=== PATIENT | female | born 1960 | race Caucasian/White ===

== ENCOUNTER 2017-01-23 00:41 | Emergency (ER) | payer BC ==
[2017-01-23 06:01] LABS: ABSOLUTE BASOPHILS # (AUTO) 0.1 10^3/uL (0.0-0.2); ABSOLUTE EOSINOPHILS # (AUTO) 0.1 10^3/uL (0.0-0.6); ABSOLUTE LYMPHOCYTES (AUTO) 1.7 10^3/uL (0.5-4.7); ABSOLUTE MONOCYTES (AUTO) 0.6 10^3/uL (0.1-1.4); ABSOLUTE NEUT (AUTO) 2.8 10^3/uL (1.7-8.2); BASOPHILS % (AUTO) 1.1 % (0-2); EOSINOPHILS % (AUTO) 2.4 % (0-6); HEMATOCRIT 37.1 % (36.0-47.0); HEMOGLOBIN 13.1 g/dL (12.0-15.5); HGB HCT DIFFERENCE 2.2; LYMPHOCYTES % (AUTO) 32.3 % (13-45); MEAN CORPUSCULAR HEMOGLOBIN 32.5 pg (27.0-33.4); MEAN CORPUSCULAR HGB CONC 35.3 g/dL (32.0-36.0); MEAN CORPUSCULAR VOLUME 92 fl (80-97); MONOCYTES % (AUTO) 11.3 % (3-13); RED BLOOD COUNT 4.04 10^6/uL (3.72-5.28); RED CELL DISTRIBUTION WIDTH 12.1 % (11.5-14.0); SEGMENTED NEUTROPHILS % (AUTO) 52.9 % (42-78); WHITE BLOOD COUNT 5.2 10^3/uL (4.0-10.5)
--- NOTE | 2017-01-23 06:08 | ER Document Report ---
ED General - General Mode of Arrival: Ambulatory TRAVEL OUTSIDE OF THE [place] IN LAST 30 DAYS: No - HPI Patient complains to provider of: left lower quadrant abdominal pain Onset: Yesterday Onset/Duration: Sudden Associated symptoms: Diarrhea, Other - Left lower back pain. denies: Nausea, Vomiting <JAYNE PEDRO - Last Filed: 01/23/17 11:36> <NUNOALBERTO - Last Filed: 01/23/17 21:17> - General Chief Complaint: Flank Pain Stated Complaint: FLANK PAIN/SWELLING Notes: Patient is a 56-year-old female presenting to the emergency department concerned of left lower quadrant abdominal pain with swelling. Patient also complains of lower back pain on the left side and diarrhea. Patient denies any nausea or vomiting. Patient has past medical history of UTI. Patient sees Dr. Gonzalez for her primary care at [place]. She was last seen in August 2016. (JAYNE PEDRO) - Related Data Allergies/Adverse Reactions: iodine [Iodine] Allergy (Verified 12/24/14 16:42) Past Medical History - General Information source: Patient, [facility] Records - Social History Smoking Status: Former Smoker Chew tobacco use (# tins/day): No Frequency of alcohol use: Occasional Drug Abuse: None Family History: Reviewed & Not Pertinent Patient has suicidal ideation: No Patient has homicidal ideation: No - Past Medical History Cardiac Medical History: Reports: Hx Heart Attack - x2, Hx Hypertension Renal/ Medical History: Denies: Hx Peritoneal Dialysis Psychiatric Medical History: Reports: Hx Depression <JAYNE PEDRO - Last Filed: 01/23/17 11:36> Review of Systems - Review of Systems Constitutional: No symptoms reported EENT: No symptoms reported Cardiovascular: No symptoms reported Respiratory: No symptoms reported Gastrointestinal: See HPI, Abdominal pain - Left lower quadrant abdominal pain with swelling, Diarrhea. denies: Nausea, Vomiting Genitourinary: See HPI, Flank pain - Left Female Genitourinary: No symptoms reported Musculoskeletal: No symptoms reported Skin: No symptoms reported Hematologic/Lymphatic: No symptoms reported Neurological/Psychological: No symptoms reported -: Yes All other systems reviewed and negative <JAYNE PEDRO - Last Filed: 01/23/17 11:36> Physical Exam - General General appearance: Appears well, Alert - HEENT Head: Normocephalic, Atraumatic Eyes: Normal Pupils: PERRL - Respiratory Respiratory status: No respiratory distress Chest status: Nontender Breath sounds: Normal Chest palpation: Normal - Cardiovascular Rhythm: Regular Heart sounds: Normal auscultation Murmur: No - Abdominal Bowel sounds: Normal Tenderness: Tender - Left lower quadrant tenderness to palpation, Other - No rigidity. No: Guarding, Rebound - Back Back: Normal, Nontender - Extremities General upper extremity: Normal inspection, Nontender General lower extremity: Normal inspection, Nontender - Neurological Neuro grossly intact: Yes Cognition: Normal Orientation: AAOx4 Mohinder Coma Scale Eye Opening: Spontaneous Mohinder Coma Scale Verbal: Oriented Mohinder Coma Scale Motor: Obeys Commands Mohinder Coma Scale Total: 15 Speech: Normal - Psychological Associated symptoms: Normal affect, Normal mood - Skin Skin Temperature: Warm Skin Moisture: Dry Skin Color: Normal <JAYNE PEDRO - Last Filed: 01/23/17 11:36> Course - Laboratory Result Diagrams: 01/23/17 05:50 01/23/17 05:50 <JAYNE PEDRO - Last Filed: 01/23/17 11:36> - Laboratory Result Diagrams: 01/23/17 05:50 01/23/17 05:50 <ALBERTO REINA - Last Filed: 01/23/17 21:17> - Re-evaluation Re-evalutation: 01/23/17 07:42 I personally performed the services described in the documentation, reviewed and edited the documentation which was dictated to my scribe in my presence, and it accurately records my words and actions. presents emergency from and she thinks her left side is little bit swollen. She denies any history of trauma diarrhea but no nausea or vomiting no abdominal pain flank pain urinary symptoms fevers chills or change in appetite. Well- appearing nontoxic on examination acute abdominal guarding rebound rigidity. Laboratory evaluation is normal CT scan is normal positive for urinary tract infection getting ahead and start her on antibiotics. She is to follow up with her primary care physician call that today to be seen in evaluation in 2 days and discussed reasons for ED return sooner (ALBERTO REINA) - Vital Signs Vital signs: Temp Pulse Resp BP Pulse Ox 97.7 F 71 18 140/82 H 97 01/23/17 00:45 01/23/17 07:50 01/23/17 00:45 01/23/17 07:50 01/23/17 07:50 - Laboratory Laboratory results interpreted by me: 01/23/17 01/23/17 05:50 06:45 Chloride 109 H Urine Blood SMALL H Ur Leukocyte Esterase LARGE H Discharge <JAYNE PEDRO - Last Filed: 01/23/17 11:36> <ALBERTO REINA - Last Filed: 01/23/17 21:17> - Discharge Clinical Impression: UTI (urinary tract infection) Qualifiers: Urinary tract infection type: acute cystitis Hematuria presence: without hematuria Qualified Code(s): N30.00 - Acute cystitis without hematuria Condition: Stable Disposition: HOME, SELF-CARE Instructions: Nitrofurantoin ([facility]) Additional Instructions: Urinary Tract Infection Your evaluation indicates that you have a urinary tract infection. This is due to germs growing in the bladder. This is a common problem. This infection usually responds quickly to antibiotics. Your antibiotic should be taken exactly as prescribed. Drink plenty of fluids -- three to four quarts a day. Occasionally, a bladder anesthetic will be prescribed to help stop the feeling of urgency until the antibiotic has a chance to clear the infection. This may cause your urine to be dark orange. Certain urine infections require a culture. If the doctor obtained a culture, the results will be back in two days. You should call to see if a change in treatment is needed. A repeat urinalysis after you finish treatment is often recommended. The physician will let you know if further testing is required. Call the doctor if you develop fever, chills, flank pain, inability to urinate, or blood in the urine. Call your primary care physician for follow-up in 1-2 days return for increasing worsening or new symptoms Prescriptions: Nitrofurantoin/Nitrofuran Mac [Macrobid 100 mg Capsule] 1 tab PO BID #20 capsule Referrals: BINDU VÁZQUEZ MD [Primary Care Provider] - Follow up as needed Scribe Documentation - Scribe Written by Roro:: Jayne Pedro 01/23/2017 0608 acting as scribe for :: Nuno <JAYNE PEDRO - Last Filed: 01/23/17 11:36>
[2017-01-23 06:15] LABS: ANION GAP 12 (5-19); BLOOD UREA NITROGEN 18 mg/dL (7-20); CALCIUM 9.6 mg/dL (8.4-10.2); CARBON DIOXIDE 24 mmol/L (22-30); CHLORIDE 109 mmol/L (98-107); GLUCOSE 102 mg/dL (75-110); POTASSIUM 4.3 mmol/L (3.6-5.0); SODIUM 144.7 mmol/L (137-145)
[2017-01-23 07:08] LABS: APPEARANCE,URINE SLIGHTLY-CLOUDY; BILIRUBIN,URINE NEGATIVE (NEGATIVE); GLUCOSE, URINE NEGATIVE (NEGATIVE); KETONES,URINE NEGATIVE (NEGATIVE); LEUKOCYTE ESTERASE,URINE LARGE (NEGATIVE); NITRITE,URINE NEGATIVE (NEGATIVE); PROTEIN,URINE NEGATIVE (NEGATIVE); URINE SPECIFIC GRAVITY 1.013; UROBILINOGEN,URINE NEGATIVE mg/dL (<2.0)
[2017-01-23 08:34] VITALS: BP 140/82
== END 2017-01-23 07:50 | disposition home or self-care (01) ==
LOC: ER 00:41
DX: N30.00 Acute cystitis without hematuria (principal); R10.9 Unspecified abdominal pain; R10.32 Left lower quadrant pain; M54.5 Low back pain; R19.7 Diarrhea, unspecified; Z87.891 Personal history of nicotine dependence
CPT/HCPCS: 36415; 76380; 80048; 81001; 85025; 99284

== ENCOUNTER → 2017-02-20 | Outpatient (CLI) | payer BC | LOC: RAD 14:48 | PROVIDERS: ATTEND Family Medicine | DX: M54.2 Cervicalgia (principal); M79.644 Pain in right finger(s) | CPT/HCPCS: 72050 ==

== ENCOUNTER 2019-06-13 08:24 | Day surgery (SDC) | payer MEDICAID ==
[~2019-06-13 08:24] MED LIST: PROPOFOL INJ 200 MG/20 ML VIAL IV ONE
[2019-06-13 10:58] VITALS: BP 119/75
--- NOTE | 2019-06-13 11:46 | Operative Report ---
Operative Report DATE OF SURGERY: 06/13/19 Operative Report: The risks, benefits and alternatives of the procedure including the risk of bleeding, perforation requiring surgery have been explained to the patient in detail and informed consent has been obtained. The patient is placed in the left, lateral decubital position. Timeout was called. Propofol medication is administered. Rectal examination is done which did not reveal any masses, tears or fissures. An Olympus videoscope was introduced into the patient's rectum. The scope was then carefully advanced all the way to the cecum. The cecum was identified by the usual anatomical landmarks including the ileocecal valve as well as the appendiceal office. Photodocumentation is obtained. Scope was then sequentially pulled back via the various segments of the colon including the ascending colon, hepatic flexure, transverse colon, splenic flexure, descending colon and finally into the rectosigmoid portions of the colon. Retroflexion maneuvers performed. PREOPERATIVE DIAGNOSIS: Chronic diarrhea, change in bowel habits POSTOPERATIVE DIAGNOSIS: Single biopsy specimen obtained right side of the colon rule out lymphocytic, collagenous colitis. Internal hemorrhoids OPERATION: Colonoscopy with biopsy SURGEON: LEONIDES SKINNER ANESTHESIA: LMAC TISSUE REMOVED OR ALTERED: As noted above. COMPLICATIONS: None. ESTIMATED BLOOD LOSS: None. INTRAOPERATIVE FINDINGS: As noted above. PROCEDURE: Patient tolerated the procedure well. No immediate postprocedure complications are noted. Patient is discharged in good condition. Discharge date 06/13/2019. Discharge diet: Regular. Discharge activity: Regular. 2 to 3-week follow-up to discuss findings. Patient is instructed to call the office or proceed to the emergency room should there be any further problems or questions. Wait on the pathology
== END 2019-06-13 11:00 | disposition home or self-care (01) ==
LOC: END 08:24
PROVIDERS: ATTEND Internal Medicine Gastroenterology
DX: K52.9 Noninfective gastroenteritis and colitis, unspecified (principal); K64.8 Other hemorrhoids; K62.5 Hemorrhage of anus and rectum; Z80.0 Family history of malignant neoplasm of digestive organs; I10 Essential (primary) hypertension; E78.5 Hyperlipidemia, unspecified; I25.10 Atherosclerotic heart disease of native coronary artery without angina pectoris; I25.2 Old myocardial infarction; Z79.82 Long term (current) use of aspirin; Z79.899 Other long term (current) drug therapy
CPT/HCPCS: 45380; 88305 ×2; J2704; 811

== ENCOUNTER → 2020-02-12 | Outpatient (CLI) | payer MEDICAID ==
[2020-02-13 12:36] LABS: ANTICHROMATIN AB <0.2 AI (0.0-0.9); CENTROMERE B AB <0.2 AI (0.0-0.9); JO-1 ANTIBODY (ANACOMP) <0.2 AI (0.0-0.9)
== END ==
LOC: OD 11:50
PROVIDERS: ATTEND Registered Nurse
DX: R94.2 Abnormal results of pulmonary function studies (principal)
CPT/HCPCS: 36415; 86021; 86225; 86235; 86431

== ENCOUNTER 2020-02-14 23:46 | Observation (INO) | payer MEDICAID ==
[2020-02-15] MEDS ORDERED: NITROGLYCERIN 0.4 MG/TAB 25 TAB/BOTTLE SL PRN ×2 (00:22→03:51)
[2020-02-15 00:25] LABS: ABSOLUTE BASOPHILS # (AUTO) 0.1 10^3/uL (0.0-0.2); ABSOLUTE EOSINOPHILS # (AUTO) 0.3 10^3/uL (0.0-0.6); ABSOLUTE LYMPHOCYTES (AUTO) 2.1 10^3/uL (0.5-4.7); ABSOLUTE MONOCYTES (AUTO) 0.7 10^3/uL (0.1-1.4); ABSOLUTE NEUT (AUTO) 2.6 10^3/uL (1.7-8.2); BASOPHILS % (AUTO) 1.3 % (0-2); HEMATOCRIT 38.6 % (36.0-47.0); HEMOGLOBIN 13.9 g/dL (12.0-15.5); LYMPHOCYTES % (AUTO) 36.5 % (13-45); MEAN CORPUSCULAR HEMOGLOBIN 32.9 pg (27.0-33.4); MEAN CORPUSCULAR HGB CONC 36.1 g/dL (32.0-36.0); MEAN CORPUSCULAR VOLUME 91 fl (80-97); MONOCYTES % (AUTO) 11.6 % (3-13); PLATELET COUNT 222 10^3/uL (150-450); RED BLOOD COUNT 4.24 10^6/uL (3.72-5.28); RED CELL DISTRIBUTION WIDTH 12.4 % (11.5-14.0); SEGMENTED NEUTROPHILS % (AUTO) 44.6 % (42-78); TOTAL CELLS COUNTED % (AUTO) 100 %; WHITE BLOOD COUNT 5.8 10^3/uL (4.0-10.5)
[2020-02-15 00:31] LABS: ALBUMIN 3.9 g/dL (3.5-5.0); ALKALINE PHOSPHATASE 141 U/L (38-126); ANION GAP 10 (5-19); ASPARTATE AMINO TRANSFERASE 43 U/L (14-36); BILIRUBIN,TOTAL 0.9 mg/dL (0.2-1.3); BLOOD UREA NITROGEN 12 mg/dL (7-20); CALCIUM 9.5 mg/dL (8.4-10.2); CARBON DIOXIDE 23 mmol/L (22-30); CHLORIDE 104 mmol/L (98-107); CREATINE KINASE 131 U/L (30-135); GLUCOSE 102 mg/dL (75-110); POTASSIUM 4.3 mmol/L (3.6-5.0); TOTAL PROTEIN 6.8 g/dL (6.3-8.2)
[2020-02-15 00:45] LABS: CREATINE KINASE MB 1.09 ng/mL (<4.55)
[2020-02-15 00:49] LABS: TROPONIN I < 0.012 ng/mL
--- NOTE | 2020-02-15 01:14 | RADIOLOGY REPORT (SQ) ---
CLINICAL INDICATION: PAIN. TECHNIQUE: A single portable AP view was obtained of the chest at 0031 hours. COMPARISON: December 24, 2014. PA and lateral FINDINGS: The cardiomediastinal silhouette appears prominent and mildly larger than prior evening accounting for technical differences. The lungs are grossly clear. No evidence of effusion or pneumothorax. The visualized bones are unremarkable. Chronic parenchymal lung change. IMPRESSION: No evidence of active intrathoracic disease. Chronic parenchymal lung change. The cardiac silhouette is larger than it was previously
--- NOTE | 2020-02-15 01:42 | ER Document Report ---
Entered by SALVATORE BURGOS SCRIBE 02/15/20 0027 Acting as scribe for:RANDALL CARRION IV, MD ED Cardiac - General Chief Complaint: Chest Pain Stated Complaint: CHEST PAIN Time Seen by Provider: 02/15/20 00:01 Mode of Arrival: Medic Information source: Patient Notes: This 59 year old female patient with a history of HTN, CAD, and AL x2 with stent placement on 11/2018 in [place] who was brought in by EMS presents to the ED today with complaints of left-sided chest pain with radiation to her back that started around 2200 last night. Patient states that she was laying down in bed when she felt a sudden pressure to the left side of her chest. She states that the pain feels similar to her previous MIs. She reports that she took x1 NTG prior to EMS arrival that provided some relief and received aspirin and an additional spray of SL NTG from EMS en route to the ED. She states the chest pressure is still present at this time. Denies shortness of breath. Patient is a former smoker, quit x5 years ago. Dr. Allen is her tests superintendent. TRAVEL OUTSIDE OF THE U[place] IN LAST 30 DAYS: No - Related Data Allergies/Adverse Reactions: iodine [Iodine] Allergy (Verified 06/13/19 08:21) Past Medical History - General Information source: Patient, [facility] Records - Social History Smoking Status: Former Smoker - quit x5 years ago Cigarette use (# per day): No Chew tobacco use (# tins/day): No Smoking Education Provided: No Frequency of alcohol use: Occasional Drug Abuse: None Family History: Reviewed & Not Pertinent Patient has suicidal ideation: No Patient has homicidal ideation: No - Past Medical History Cardiac Medical History: Reports: Hx Coronary Artery Disease, Hx Heart Attack - x2. STENT PLACED, Hx Hypertension Psychiatric Medical History: Reports: Hx Depression Past Surgical History: Reports: Hx Coronary Stent - 11/2018 [facility] - Immunizations Hx Diphtheria, Pertussis, Tetanus Vaccination: No Review of Systems - Review of Systems Constitutional: No symptoms reported EENT: No symptoms reported Cardiovascular: See HPI, Chest pain Respiratory: See HPI. denies: Short of breath Gastrointestinal: No symptoms reported Genitourinary: No symptoms reported Female Genitourinary: No symptoms reported Musculoskeletal: See HPI, Back pain Skin: No symptoms reported Hematologic/Lymphatic: No symptoms reported Neurological/Psychological: No symptoms reported -: Yes All other systems reviewed and negative Physical Exam - Vital signs Vitals: Temp 98.3 F 02/14/20 23:53 - General General appearance: Alert In distress: None - HEENT Head: Normocephalic, Atraumatic Eyes: Normal Pupils: PERRL - Respiratory Respiratory status: No respiratory distress Chest status: Nontender Breath sounds: Normal Chest palpation: Normal - Cardiovascular Rhythm: Regular Heart sounds: Normal auscultation Murmur: No Friction rub: No Gallop: None auscultated - Abdominal Inspection: Normal Distension: No distension Bowel sounds: Normal Tenderness: Nontender - Abdomen soft Organomegaly: No organomegaly - Back Back: Normal, Nontender - Extremities General upper extremity: Normal inspection General lower extremity: Normal inspection - Neurological Neuro grossly intact: Yes Orientation: AAOx4 - Psychological Associated symptoms: Normal affect, Normal mood - Skin Skin Temperature: Warm Skin Moisture: Dry Skin Color: Normal Course - Re-evaluation Re-evalutation: 02/15/20 03:51 Patient is chest pain-free after administration of sublingual nitroglycerin in the emergency department. Patient agrees to be admitted for observation. Results of ED MSE discussed with patient. All questions were answered. 02/15/20 04:39 This MD was notified by patient's nurse that the second troponin on the patient was above the AMI cutoff. This MD spoke with patient's tests superintendent Dr. Allen. He agreed that the patient needed to be transferred to a center for higher level of care given that her second troponin is positive. 02/15/20 04:43 - Vital Signs Vital signs: Temp Pulse Resp BP Pulse Ox 98.3 F 65 126/78 H 02/14/20 23:53 02/15/20 02:15 02/15/20 02:15 - Laboratory Result Diagrams: 02/14/20 23:20 02/14/20 23:20 Laboratory results interpreted by me: 02/14/20 02/14/20 23:20 23:20 MCHC 36.1 H AST 43 H ALT 36 H Alkaline Phosphatase 141 H - Diagnostic Test Radiology reviewed: Reports reviewed - EKG Interpretation by Me Additional EKG results interpreted by me: 02/15/20 03:53 EKG obtained on 02/15/2020 at 00 13 hours was interpreted by this MD. Findings: Rate 64, normal sinus rhythm, P waves proceed QRS complexes, QRS complexes are narrow, there are no obvious patterns of ST segment elevation or depression present to suggest acute myocardial ischemia or infarction. Impression: Normal sinus rhythm with nonspecific ST segments. - Consults dr. vishal lundberg Time consulted: 03:55 - agreed to admit pt for observation Reason for consultation: 02/15/20 04:00 chest pain Consulted provider: will see as inpatient Dr. Barrington Francisco Time consulted: 04:43 - Dr. Francisco accepted patient for transfer to his facility Reason for consultation: 02/15/20 04:44 NSTEMI Discharge - Discharge Clinical Impression: NSTEMI (non-ST elevated myocardial infarction) Condition: Good Disposition: [facility] I personally performed the services described in the documentation, reviewed and edited the documentation which was dictated to the scribe in my presence, and it accurately records my words and actions.
[2020-02-15] MEDS ORDERED: NITROGLYCERIN 2% OINTMENT 1 GM PACKET TP ONE (03:43)
[2020-02-15] MEDS ORDERED: ACETAMINOPHEN 325 MG TABLET PO PRN (03:51)
[2020-02-15] MEDS ORDERED: ENOXAPARIN SODIUM INJ 80 MG/0.8 ML DISP.SYRIN SUBCUT ONE ×2 (04:00→04:34)
[2020-02-15 06:22] VITALS: BP 115/68
--- NOTE | 2020-02-15 06:54 | ER Document Report ---
Doctor's Note Notes: 02/15/20 06:52 Nurse notified this MD that transport has arrived to take patient to [facility] in [place]. This MD saw the patient prior to discharge. She is alert and oriented x3, appears to be in no acute distress, denies chest pain, has no questions at time of transfer. Patient appears safe and stable for transfer to [facility].
--- NOTE | 2020-02-15 11:07 | EKG REPORT ---
SEVERITY:- BORDERLINE ECG - SINUS RHYTHM BORDERLINE T ABNORMALITIES, ANT-LAT LEADS : Confirmed by: Reddy Lew 15-Feb-2020 11:06:45
[2020-02-15] MEDS ORDERED: ENOXAPARIN SODIUM INJ 80 MG/0.8 ML DISP.SYRIN SUBCUT SCH (18:00)
== END 2020-02-15 06:54 | disposition short-term general hospital (02) ==
LOC: ER 23:46 → EH 02-15 03:57
PROVIDERS: ADMIT Internal Medicine; ATTEND Internal Medicine
DX: I21.4 Non-ST elevation (NSTEMI) myocardial infarction (principal); I25.10 Atherosclerotic heart disease of native coronary artery without angina pectoris; M54.9 Dorsalgia, unspecified; I25.2 Old myocardial infarction; Z95.5 Presence of coronary angioplasty implant and graft; Z87.891 Personal history of nicotine dependence
CPT/HCPCS: 93005; 99285; 96372; 36415; 82553; 82550; 83690; 85025; 80053; 84484; 71045; 93010; J3490 ×2; J1650

== ENCOUNTER → 2020-07-01 | Outpatient (CLI) | payer MEDICAID ==
--- NOTE | 2020-07-01 09:41 | ST Modified Barium Swallow ---
Recommendation - Recommendations Recommendations: No significant pharyngeal phase deficits seen. Patient may wish to follow up with GI due to nature of symptoms, possible reduced opening of UES, mild. Medical Diagnoses - Medical Diagnoses Medical Diagnosis Description & ICD-10 Code(s): dysphagia R13.10 Other Medical Diagnoses/Co-Morbidities: per patient report: reflux, COPD - ICD-10 Tx Diagnosis Coding (1) Dysphagia, unspecified ICD-10 Code(s): R13.10 - DYSPHAGIA, UNSPECIFIED (2) GERD (gastroesophageal reflux disease) ICD-10 Code(s): K21.9 - GASTRO-ESOPHAGEAL REFLUX DISEASE WITHOUT ESOPHAGITIS ST Modified Barium Swallow - General Date: 07/01/20 Referring Physician: MIKE Chambers Risks/Precautions: None Date of Onset: 06/22/19 - approximate onset date Reason for Referral: difficulty swallowing - History History obtained from: Patient -: Medical - Patient attended assessment independently and provided history. She states that she she eats, "it won't go all the way down". States this can happen with anything, and has been occuring for over 1 year. Patient reports coughing with meals and globus sensation, no choking episodes and no recent pneumonia or bronchitis. Patient does also report occasional pain with swallowing. Medications: per patient list: isosorb, citalopram, viberzi, pantoprazole, stiolto, pulmicort, metoprolol, amlodipine, aspirin, atorvastatin Allergies: per patient report: shrimp (iodine) - Functional Status Prior Functional Status: INDEPENDENT: feeding - independent Current Functional Limitations: feeding - globus - Subjective Patient/caregiver goal(s): safe swallow Cognitive-Linguistic Function: WNL Speech Intelligibility: WNL Current Nutritional Means: PO Current PO diet: Regular Current symptoms: c/o Globus sensation Pain: Patient reports, 0/5 - Objective Assessment: Upright, Left Lateral - Food Trials Used Food trials used: Thin liquids, Pureed, Regular The patient: Was Able to Self Feed - Oral-Motor Skills Dentition: Dentures-Upper Velo-pharyngeal function: Unremarkable Laryngeal Function: clear voicing - Assessment Oral prep: Normal Labial closure: Adequate Leakage: None Mastication: Lengthy Lingual Movement: Normal Oral stage: Normal for this Procedure - Pharyngeal Stage Initiation of Pharyngeal Stage Reflex: Normal Decreased laryngeal elevation: No Reduced Velopharyngeal Closure: no Reduced pressure generation: No reduced tongue-based retraction: No Pre-swallow pooling in valleculae: Mild Pre-Swallow pooling in pyriforms: None Reduced Thyro-Hyoid approximation: No Reduced epiglottic excursion: No Reduced pharyngeal peristalsis/contraction: No Multiple Swallows with: Effective Post-swallow residulas vallecular: Mild - cleared with dry swallow Post-Swallow residuals in pyriforms: Mild - cleared with dry swallow - Esophageal Stage Esophageal Stage: Possible signs of reduced UES opening, this was inconsistent. - Fall Risk Assessment Medications/Conditions that increase fall risks include: Antidepressants, sedatives, anti-arrhythmic, diuretic, benzodiazipenes, neuroleptics. BP regulation problems, cardiac problems, balance or gait deficits, neurological problems. Is patient considered at risk for falls: no Fall Risk Actions Taken: No action needed - Behavioral Observations During evaluation process patient: was cooperative, able to answer questions, provided medical history - Treatment / Educational Needs: Treatment/Education Needs: Treatment consisted of patient education on the role of the Speech Pathologist. Patient's plan of care and golas were communicated as well as scheduling and attendance policies. Recommendations for initial home program were shared. Patient demonstrated understanding and verbalized agreement. - Impression/Summary Tracheal Aspiration: no - some trace penetration of thin liquid with sequential straw sips x1, WNL. Patient presents with: Normal swallow at eval Risk of Aspiration: Minimal Risk of nutritional compromise: None Evaluation and Findings: Patient demonstrated some mild oral phase deficits, specifically piecemeal swallowing, and some mild residue of solids in pharynx. However, this residue cleared easily with additional swallow. Patient did report sensation of residue in the pharynx when cavity was clear on fluoro. Symptoms may be related to underlying GI condition. - Recommendations Solid diet recommendations: Regular Liquid Diet Modification: Thin Pt/Family education and followup with MD: Yes Reflux Precautions: Taught to Patient Recommended techniques: Fully Upright During Meal, Alternate Bites/Sips Information, Precautions and Recommendations: Patient (Written), Patient (Verbal) - Time Total Time: 30 - Plan of Care Strategies to optimize patient understanding include:: ongoing assessment of educational needs, implementation of educational strategies, and re-education. - - -: Thank you for the opportunity to work with this patient and his/her family. Should you have any questions about this patient's plan or progress, I can be reached at [phone].
--- NOTE | 2020-07-01 13:36 | RADIOLOGY REPORT (SQ) ---
EXAM DESCRIPTION: COOKIE SWALLOW IMAGES COMPLETED DATE/TIME: 07/01/2020 9:22 am REASON FOR STUDY: DYSPHAGIA R13.10 DYSPHAGIA, UNSPECIFIED COMPARISON: Cookie swallow 12/25/2014. . TECHNIQUE: Videofluoroscopic swallowing examination was performed in conjunction with speech patholo gy. Videofluoroscopic imaging was obtained and reviewed and these are the findings: RADIATION DOSE: Fluoro time 2.10 minutes 1 images saved to PACS. LIMITATIONS: None FINDINGS: The patient was brought into the fluoro room and placed upright on a modified barium swall ow chair. The patient was then given multiple consistencies mixed with barium to swallow under live fluoroscopic video guidance. According to the Speech Pathologist there was no penetration or aspirat ion. Please refer to the speech pathology report for further details. IMPRESSION: NO EVIDENCE OF PENETRATION OR ASPIRATION. PLEASE SEE SPEECH PATHOLOGIST REPORT FOR OTHER FINDINGS AND RECOMMENDATIONS. COMMENT: None Quality ID [id number]: Final reports for procedures using fluoroscopy that document radiation exposure blair kelsie, or exposure time and number of fluorographic images (if radiation exposure indices are not avail able) TECHNICAL DOCUMENTATION: JOB ID: [id number] 2010 [employer]- All Rights Reserved Reading location - IP/workstation name: [email or web address]
== END ==
LOC: RAD 08:00
PROVIDERS: ATTEND Registered Nurse
DX: K21.9 Gastro-esophageal reflux disease without esophagitis (principal); R13.10 Dysphagia, unspecified; J44.9 Chronic obstructive pulmonary disease, unspecified
CPT/HCPCS: 74230